=== PATIENT | female | born 1980 | race Caucasian/White ===

== ENCOUNTER 2018-07-18 06:25 | Day surgery (SDC) | payer OTHER ==
[2018-07-18] MEDS ORDERED: SOD CHLORIDE 0.9% 1,000 ML IV (09:00)
[2018-07-18] MEDS ORDERED: CEFAZOLIN 2 GM/50 ML (PMX) 50 ML IVPB (09:00)
[2018-07-18] MEDS ORDERED: PROPOFOL 20 ML (10:25)
[2018-07-18] MEDS ORDERED: FENTAnyl 50 MCG/ML VIAL (10:25)
[2018-07-18] MEDS ORDERED: MIDAZOLAM 1 MG/ML 2 ML INJ (10:25)
[2018-07-18] MEDS ORDERED: LIDOCAINE 2% (SDV) 5 ML INJ (10:25)
[2018-07-18] MEDS ORDERED: CEFAZOLIN 1 GM INJ (10:51)
[2018-07-18] MEDS ORDERED: ONDANSETRON 4 MG INJ (10:51)
[2018-07-18] MEDS ORDERED: HYDROmorphONE 1 MG/5 ML IV SYRINGE IV (11:00)
[2018-07-18] MEDS ORDERED: MEPERIDINE 25 MG INJ IV (11:00)
[2018-07-18] MEDS: BUPIVACAINE 0.25% (MPF) 30 ML INJ (11:04)
[2018-07-18] MEDS ORDERED: KETOROLAC 30 MG INJ (11:27)
[2018-07-18] MEDS: HYDROmorphONE 1 MG/5 ML IV SYRINGE IV ×3 (12:04→12:50)
[2018-07-18] MEDS: HYDROCODONE/APAP (5/325) TAB PO (12:06)
== END 2018-07-18 13:10 | disposition home or self-care (01) ==
LOC: SDS 06:25
DX: D24.1 Benign neoplasm of right breast (principal); L72.0 Epidermal cyst; L90.5 Scar conditions and fibrosis of skin
CPT/HCPCS: 14001; 84703; 88307